=== PATIENT | male | born 1955 | race Caucasian/White ===

== ENCOUNTER 2019-03-17 20:34 | Emergency (ER) | payer OTHER ==
[2019-03-17 20:46] VITALS: BP 140/84; PULSE 89
--- NOTE | 2019-03-17 20:58 | EDM.PDOC ---
ED HPI GENERAL MEDICAL PROBLEM - General Chief Complaint: Respiratory Problem Stated Complaint: SOB RIB PAIN Time Seen by Provider: 03/17/19 20:46 Source of Information: Reports: Patient History Limitations: Reports: No Limitations - History of Present Illness INITIAL COMMENTS - FREE TEXT/NARRATIVE: 63-year-old male presents to the ED with severe pain in his left mid back since having left rotator cuff repair February 20. Patient states he knew that he had a rib head out of place as soon as he went home because of similar pain in his left back. Pain is constant hot burning and radiates around to the front of his left chest. It is causing enough pain that he is not able to sleep well and interfering with his ability to try and work. Splinting respirations. Denies cough or sputum production. No fever or chills. After 2 weeks workers compensation Board made him return to the workplace in spite of having had multiple sites of rotator cuff repair in his left shoulder. He went back to work last Sunday, March 12 and the but was sick with gastroenteritis and diarrhea on the . He tried to go back to work today but the pain was too intense. Patient has been to the chiropractor and believes that one of his rib heads was put back into place but the second one could not primarily due to inability to lay on his left side to allow the chiropractor to replace this rib head. He comes to the ED tonight because of severity of pain hoping to get some muscle relaxant so that he might be able to sleep. He apparently has oxycodone tablets at home after surgery. He was prescribed 40 and has taken only 3 of them. He states last week one day his left hand swelled quite badly for 6 hours or so and then seem to go down overnight. Patient has appreciable inspiratory splinting on the left side. Onset: Sudden Onset Date: 02/20/19 (Has had left upper and mid back pain started since February 20 when he had his rotator cuff repaired on the left side.) Duration: Day(s):, Getting Worse Location: Reports: Back (Pain primarily in his mid left thorax. Makes breathing very painful. Pain is described as hot and burning. It radiates along the lateral ribs to the anterior chest and left precordium at times.) Quality: Reports: Ache, Burning, Sharp, Stabbing Severity: Moderate Improves with: Reports: None (8 out of 10) Worsens with: Reports: Other Context: Reports: Other (States he awoke with pain in his left upper back after having left rotator cuff surgery February 20. He feels that sometime during the operation his rib heads subluxed.). Denies: Activity (ertain positions make it worse. Finding it very uncomfortable to try lay down at night to sleep.), Exercise, Lifting, Sick Contact, Trauma Associated Symptoms: Reports: Chest Pain, Malaise, Shortness of Breath. 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.) Left Chest Pain Score (Numeric/FACES): 8 - Related Data Allergies Allergy/AdvReac Type Severity Reaction Status Date / Time venom-honey bee Allergy Anaphylactic Verified 03/17/19 20:46 [bee venom (honey bee)] Shock Home Meds: Home Meds Hydrocodone/Acetaminophen [Hydrocodon-Acetaminophen 5-325] 1 tab PO Q4H PRN [History] Cyclobenzaprine [Flexeril] 10 mg PO BEDTIME PRN #10 tab 03/17/19 [Rx] Diclofenac Sodium [Voltaren] 75 mg PO BIDMEALS #20 tab.cr 03/17/19 [Rx] Past Medical History Other Respiratory History: slight empysema - Past Surgical History Musculoskeletal Surgical History: Reports: Other (See Below) (Patient underwent left rotator cuff repair on multiple sites February 20. He states he had his biceps tendon repair to supraspinatus tendon repaired and another tendon repaired in his left shoulder.) Social & Family History - Living Situation & Occupation Living situation: Reports: Occupation: Employed ED ROS GENERAL - Review of Systems Review Of Systems: See Below Constitutional: Reports: Malaise, Weakness, Fatigue, Decreased Appetite ( Pulmonic asleep). Denies: Fever, Chills HEENT: Reports: No Symptoms Respiratory: Reports: Shortness of Breath. Denies: Wheezing, Pleuritic Chest Pain, Cough, Sputum Cardiovascular: Reports: Chest Pain (Radiates from his left mid back into the left precordium.), Dyspnea on Exertion (Has appreciated some swelling in his legs lately.), Edema, Other (Dyspnea at rest). Denies: Blood Pressure Problem, Claudication, Lightheadedness, Orthopnea Endocrine: Reports: Fatigue GI/Abdominal: Reports: Decreased Appetite : Reports: No Symptoms Musculoskeletal: Reports: Shoulder Pain (Left shoulder pain recovering from rotator cuff repair done February 20 of this year), Back Pain (Left mid) Skin: Reports: No Symptoms Neurological: Reports: No Symptoms Psychiatric: Reports: Anxiety, Mood Lability Hematologic/Lymphatic: Reports: No Symptoms (Feeling grouchy and mood Sharma due to his chronic pain and poor sleep) Immunologic: Reports: No Symptoms ED EXAM, GENERAL - Physical Exam Exam: See Below Exam Limited By: No Limitations General Appearance: Alert, WD/WN, Moderate Distress, Other (He appears to be in obvious discomfort.) Neck: Normal Inspection, Supple, Non-Tender, Full Range of Motion. No: Carotid Bruit, Lymphadenopathy (L), Lymphadenopathy (R) Respiratory/Chest: Lungs Clear, No Accessory Muscle Use, Respiratory Distress ( Tachypneic at rest 20/m.), Decreased Breath Sounds (There is dullness to percussion left lower lung field. Query pleural effusion), Splinting (Decreased breath sounds to the left lung base due to splinting. Left side). No: Normal Breath Sounds, Rales, Rhonchi, Wheezing Cardiovascular: Normal Peripheral Pulses, Regular Rate, Rhythm, No Edema, No Gallop, No Murmur, No Rub Peripheral Pulses: 3+: Posterior Tibial (L), Posterior Tibial (R), Dorsalis Pedis (L), Dorsalis Pedis (R) GI/Abdominal: Normal Bowel Sounds, Soft, Non-Tender, No Organomegaly, No Mass, Pelvis Stable Back Exam: Muscle Spasm (There is muscle spasm on the left side over her thoracic rib head 8 and 9 level. Tenderness in this area as well. No rashes.) Extremities: Pedal Edema, Other (Patient has multiple laparoscopic wounds to the left shoulder which are healing well from recent rotator cuff surgery. He has mild dependent edema 2+ both lower extremities to mid tib-fib.) Neurological: Alert, Oriented, CN II-XII Intact, Normal Cognition, Normal Gait, No Motor/Sensory Deficits Psychiatric: Other (He is in obvious discomfort.) Skin Exam: Warm, Dry, Intact, Normal Color, No Rash EKG INTERPRETATION EKG Date: 03/17/19 Time: 21:08 Rhythm: NSR Rate (Beats/Min): 89 [place]: Normal P-Wave: Enlarged (Consider left atrial hypertrophy.) QRS: Other (There is early R-wave transition in V2 V3. Consider right ventricular hypertrophy versus septal hypertrophy pattern. There is also an RSR prime wave in V1 which is a normal variant.) ST-T: Other (There is a lot of baseline wandering but he does have an early repolarization pattern.) QT: Prolonged EKG Interpretation Comments: Abnormal ECG Course - Vital Signs Last Recorded V/S: Last Vital Signs Temp 36.7 C 03/17/19 20:40 Pulse 89 03/17/19 20:40 Resp 20 03/17/19 20:40 BP 140/84 03/17/19 20:40 Pulse Ox 97 03/17/19 20:40 - Orders/Labs/Meds Orders: Active Orders 24 hr Category Date Time Status EKG Documentation Completion [RC] STAT Care 03/17/19 21:00 Active Chest 1V Frontal [CR] Stat Exams 03/17/19 21:00 Taken Chest PE [Ang Chest] [CT] Stat Exams 03/17/19 21:35 Taken Dextrose 5%-0.9% NaCl [Dextrose 5%-Normal Saline] 1,000 Med 03/17/19 21:00 Active ml IV ASDIRECTED Medication Orders Dextrose/Sodium Chloride (Dextrose 5%-Normal Saline) 1,000 mls @ 500 mls/hr IV ASDIRECTED KEVIN Last Admin: 03/17/19 21:04 Dose: 500 mls/hr Labs: Laboratory Tests 03/17/19 03/17/19 03/17/19 Range/Units 21:06 21:06 21:06 WBC 8.09 (4.23-9.07) K/mm3 RBC 4.69 (4.63-6.08) M/mm3 Hgb 14.5 (13.7-17.5) gm/dl Hct 43.7 (40.1-51.0) % MCV 93.2 H (79.0-92.2) fl MCH 30.9 (25.7-32.2) pg MCHC 33.2 (32.2-35.5) g/dl RDW Std Deviation 45.2 H (35.1-43.9) fL Plt Count 225 (163-337) K/mm3 MPV 8.6 L (9.4-12.3) fl Neut % (Auto) 56.0 (34.0-67.9) % Lymph % (Auto) 24.2 (21.8-53.1) % [place] % (Auto) 16.3 H (5.3-12.2) % Eos % (Auto) 2.3 (0.8-7.0) Baso % (Auto) 0.5 (0.1-1.2) % Neut # (Auto) 4.52 (1.78-5.38) K/mm3 Lymph # (Auto) 1.96 (1.32-3.57) K/mm3 [place] # (Auto) 1.32 H (0.30-0.82) K/mm3 Eos # (Auto) 0.19 (0.04-0.54) K/mm3 Baso # (Auto) 0.04 (0.01-0.08) K/mm3 Manual Slide Review Abnormal smear D-Dimer, Quantitative 0.69 H (0.19-0.50) mg/L Sodium 142 (136-145) mEq/L Potassium 4.0 (3.5-5.1) mEq/L Chloride 107 (98-107) mEq/L Carbon Dioxide 28 (21-32) mEq/L Anion Gap 11.0 (5-15) BUN 17 (7-18) mg/dL Creatinine 1.1 (0.7-1.3) mg/dL Est Cr Clr Drug Dosing 62.83 mL/min Estimated GFR (MDRD) > 60 (>60) mL/min BUN/Creatinine Ratio 15.5 (14-18) Glucose 133 H (80-115) mg/dL Calcium 9.0 (8.5-10.1) mg/dL Magnesium 2.2 (1.8-2.4) mg/dl Total Bilirubin 0.4 (0.2-1.0) mg/dL AST 17 (15-37) U/L ALT 50 (16-63) U/L Alkaline Phosphatase 94 (46-116) U/L Lactate Dehydrogenase (85-227) U/L Troponin I < 0.017 (0.00-0.056) ng/mL C-Reactive Protein 6.9 H* (<1.0) mg/dL NT-Pro-B Natriuret Pep (0-125) pg/mL Total Protein 7.6 (6.4-8.2) g/dl Albumin 3.6 (3.4-5.0) g/dl Globulin 4.0 gm/dL Albumin/Globulin Ratio 0.9 L (1-2) 03/17/19 03/17/19 Range/Units 21:06 21:06 WBC (4.23-9.07) K/mm3 RBC (4.63-6.08) M/mm3 Hgb (13.7-17.5) gm/dl Hct (40.1-51.0) % MCV (79.0-92.2) fl MCH (25.7-32.2) pg MCHC (32.2-35.5) g/dl RDW Std Deviation (35.1-43.9) fL Plt Count (163-337) K/mm3 MPV (9.4-12.3) fl Neut % (Auto) (34.0-67.9) % Lymph % (Auto) (21.8-53.1) % [place] % (Auto) (5.3-12.2) % Eos % (Auto) (0.8-7.0) Baso % (Auto) (0.1-1.2) % Neut # (Auto) (1.78-5.38) K/mm3 Lymph # (Auto) (1.32-3.57) K/mm3 [place] # (Auto) (0.30-0.82) K/mm3 Eos # (Auto) (0.04-0.54) K/mm3 Baso # (Auto) (0.01-0.08) K/mm3 Manual Slide Review D-Dimer, Quantitative (0.19-0.50) mg/L Sodium (136-145) mEq/L Potassium (3.5-5.1) mEq/L Chloride (98-107) mEq/L Carbon Dioxide (21-32) mEq/L Anion Gap (5-15) BUN (7-18) mg/dL Creatinine (0.7-1.3) mg/dL Est Cr Clr Drug Dosing mL/min Estimated GFR (MDRD) (>60) mL/min BUN/Creatinine Ratio (14-18) Glucose (80-115) mg/dL Calcium (8.5-10.1) mg/dL Magnesium (1.8-2.4) mg/dl Total Bilirubin (0.2-1.0) mg/dL AST (15-37) U/L ALT (16-63) U/L Alkaline Phosphatase (46-116) U/L Lactate Dehydrogenase 166 (85-227) U/L Troponin I (0.00-0.056) ng/mL C-Reactive Protein (<1.0) mg/dL NT-Pro-B Natriuret Pep 22 (0-125) pg/mL Total Protein (6.4-8.2) g/dl Albumin (3.4-5.0) g/dl Globulin gm/dL Albumin/Globulin Ratio (1-2) Meds: Medications Generic Name Dose Route Start Last Admin Trade Name Freq PRN Reason Stop Dose Admin Dextrose/Sodium Chloride 1,000 mls @ 500 mls/hr 03/17/19 21:00 03/17/19 21:04 Dextrose 5%-Normal Saline IV 500 mls/hr ASDIRECTED KEVIN Administration Discontinued Medications Generic Name Dose Route Start Last Admin Trade Name Freq PRN Reason Stop Dose Admin Hydromorphone HCl 1 mg 03/17/19 20:59 03/17/19 21:05 Dilaudid IVPUSH 03/17/19 21:00 1 mg ONETIME ONE Administration Metoclopramide HCl 10 mg 03/17/19 20:59 03/17/19 21:05 Reglan IVPUSH 03/17/19 21:00 10 mg ONETIME ONE Administration - Radiology Interpretation Free Text/Narrative:: 63-year-old male presents to the ED for evaluation of severe left thoracic back pain. Patient states he underwent laparoscopic rotator cuff repair on February 20 and when he went home that day he appreciated pain in his left back. He's had this pain before when his rib heads have subluxed and this is what he thought was causing his pain. He's been living at with it for the last 3 weeks or better. Has gone to the chiropractor and perhaps one of the ribs was reduced but unable to reduce the upper mid back from bed due to inability to get into a suitable position for the chiropractor to work due to him having to lay on his left shoulder. He comes to the ED in quite significant pain although his Percocet tablets at home is only taken 3 since the time of surgery. He was hoping to get some muscle relaxants her some relief of the pain so he might be able to sleep. Patient was forced to go back to work week ago I 2 weeks after surgery by Worker's Compensation board. He works at [employer] and is doing light duties but was unable to do them today. He eliminated to 2 days last week as well. Patient is splinting respirations on the left side with decreased air entry at left lung base. He does have mild pitting edema both lower extremities up to mid tib-fib bilaterally which is atypical for him. Patient's pain is out of proportion to clinical findings. He does indeed have a area of muscle spasm left mid back particularly over rib head 8 and 9 levels. I suspect there is a rib head subluxed at the T8 level. Plan IV will be D5 normal saline at 250 mils per hour. Given Dilaudid 1 mg IV with Reglan 10 mg IV. Plan will be to have a chest x-ray ECG and some routine labs including a d-dimer to make sure not missing anything. - Re-Assessments/Exams Free Text/Narrative Re-Assessment/Exam: 03/17/19 21:34 chest x-ray reveals an elevated left hemidiaphragm with a meniscus sign in the left lung field suggestive of a pleural effusion. There is a large amount of air distending the stomach which is pushing up on the left hemidiaphragm in this area as well. The heart size is normal. There does not appear to be any vascular congestion. Plan will be to CT his chest per pulmonary angiogram since his pain is out of proportion to clinical findings suggesting a possible pulmonary infarct. 03/17/19 21:37 Hematology reveals a normal white count at 8.09. Auto differential shows 56% neutrophils. Elevated monocytes at 16%. Hemoglobin is 14.5 with hematocrit of 43.7. MCV slightly elevated at 93.2. White count normal at 225,000. 03/17/19 21:54 Further labs are now available. Patient's d-dimer did come back mildly elevated at 0.69. Upper limits of normal are lab is 0.50. Sodium is 142 with potassium of 4.0. Chloride is 107 with a bicarbonate 28. Anion gap is 11.0. BUNs was 17 with creatinine of 1.1. GFR remains greater than 60. Glucose is 133 with a calcium of 9.0. Magnesium is 2.2. Liver function is normal. Troponin I is less than 0.017. C-reactive protein is elevated at 6.9. BNP is 22. Protein 7.6 with an albumin fraction of 3.6. 03/17/19 22:26 CT chest is been completed per pulmonary angiogram protocol. Cardiac silhouette is within normal limits. There is no evidence of pulmonary embolism on this study. There is questionable pneumothorax on the left side adjacent to the mediastinum and a small amount of air in the apex of the left lung. There appears to be some emphysematous blebs in the right lung field as well. However I am suspicious of a small pneumothorax adjacent to the mediastinum. The [facility] rad radiologist reports no evidence of pneumothorax. No pleural effusion and agreed that there was no evidence of pulmonary emboli. Patient is having much less pain with the IV analgesia. He still feels pain primarily in the front of his anterior chest. There is no pleural effusion. If there is a pneumothorax present it is very small and does not deserve thoracostomy drainage at this point time. She will return if he doesn't improve over the next 48 hours. No be given to excuse him from the work place for the rest of this week. Home on Flexeril 10 mg to be taken primarily at bedtime to help sleep. Therefore he already has Percocet 5/325 mg tablets at home and he continues intermittent for pain relief. Advised MiraLAX powder 17 g daily well on the pain pills to prevent constipation. He will also be placed on Voltaren 75 mg twice a day for 7 days to help reduce inflammation and pain. Departure - Departure Time of Disposition: 22:39 Disposition: Home, Self-Care 01 Condition: Fair Clinical Impression: Pleuritic chest pain - Discharge Information *PRESCRIPTION DRUG MONITORING PROGRAM REVIEWED*: Not Applicable *COPY OF PRESCRIPTION DRUG MONITORING REPORT IN PATIENT GILBERT: Not Applicable Prescriptions: Cyclobenzaprine [Flexeril] 10 mg PO BEDTIME PRN #10 tab PRN Reason: muscle spasm relief. Diclofenac Sodium [Voltaren] 75 mg PO BIDMEALS #20 tab.cr Referrals: Eneida Yoo NP [Primary Care Provider] - Forms: ED Department Discharge, ED Return to Work/School Form Additional Instructions: Evaluation in the emergency room tonight in regards to worsening pain left upper back and anterior left chest particularly over the last few days. As you identified your. Have a rib head subluxation or displacement in your left upper back at the T8 or T9 level on examination. Use appeared to be in a great deal of pain more than one would expect just from a rib head subluxation and there is a pleuritic component to your chest pain i.e. every breath catches and hurts. Patient were carried out. States he suggested that the left hemidiaphragm is elevated and that there perhaps was an area of fluid collection in the base call the pleural effusion. Markers for potential blood clot in the lung came back very minimally elevated. They can sometimes be elevated from recent surgery as well. He therefore had a CT scan of your chest with contrast to make sure there was no blood clots in the lungs and none were found. Some emphysematous changes in both lungs appreciated on CT exam. You're treated with intravenous fluids and pain medication Dilaudid 1 mg with Reglan 10 mg to make sure there was no nausea from the pain medication. Treatment at home is suggested to be Percocet tabs 5/325 mg one or 2 every 4-6 hours needed for pain relief. Use Voltaren 75 mg twice daily breakfast and supper with food. This medication is used to reduce pain and inflammation. Flexeril 10 mg may be taken every 12 hours but preferably just at bedtime as a muscle relaxant to help sleep. note given to excuse her from the work place for the rest of this week. - My Orders Last 24 Hours: My Active Orders 03/17/19 21:00 EKG Documentation Completion [RC] STAT Chest 1V Frontal [CR] Stat Dextrose 5%-0.9% NaCl [Dextrose 5%-Normal Saline] 1,000 ml IV ASDIRECTED 03/17/19 21:35 Chest PE [Ang Chest] [CT] Stat - Assessment/Plan Last 24 Hours: My Active Orders 03/17/19 21:00 EKG Documentation Completion [RC] STAT Chest 1V Frontal [CR] Stat Dextrose 5%-0.9% NaCl [Dextrose 5%-Normal Saline] 1,000 ml IV ASDIRECTED 03/17/19 21:35 Chest PE [Ang Chest] [CT] Stat
[2019-03-17] MEDS ORDERED: HYDROmorphone 1 MG/ML Syringe IVPUSH ONE (20:59)
[2019-03-17] MEDS ORDERED: Metoclopramide 10 MG/2 ML SDV IVPUSH ONE (20:59)
[2019-03-17] MEDS ORDERED: Dextrose 5%-0.9% NaCl 1,000 ML IV SCH (21:00)
--- NOTE | 2019-03-18 07:01 | CR ---
Chest: Frontal view of the chest was obtained. Comparison: Prior chest x-ray of 04/19/15. Slight atelectasis above the left hemidiaphragm. Lungs otherwise are clear. Heart size and mediastinum are normal. Previous left shoulder surgery is noted. Impression: 1. Findings which are believed to be incidental. 2. Nothing acute is appreciated on frontal chest x-ray. Diagnostic code #2
--- NOTE | 2019-03-18 07:04 | CT ---
CT chest Technique: Multiple axial sections were obtained from above the lung apices inferiorly through the lung bases. Intravenous contrast was utilized. Study has been performed as a pulmonary angiogram protocol. Comparison: Prior chest CT study of 04/19/15 and chest x-ray performed earlier on the same day as current chest CT. Findings: Pulmonary arteries are not optimally opacified. No discrete filling defects are seen within main or segmental branches to indicate pulmonary embolism. Aorta shows mild atherosclerotic change without aneurysm. No mediastinal adenopathy is seen. Mild coronary artery calcification is noted. No pericardial thickening is seen. Visualized portions of the upper abdominal structures are within normal limits. Slight emphysematous change with small subpleural blebs. No acute parenchymal change is otherwise seen. Impression: 1. No findings of pulmonary embolism within the main or segmental branches. 2. Slight emphysematous changes small subpleural blebs. 3. Nothing acute is appreciated. Diagnostic code #2 I agree with preliminary report from [facility], finalized on 03/17/19, 11:29 PM Central Time
== END 2019-03-17 22:50 | disposition home or self-care (01) ==
LOC: JD.ED 20:34
DX: R07.81 Pleurodynia (principal); Z91.030 Bee allergy status
CPT/HCPCS: 36415; 71045; 71275; 80053; 83615; 83735; 83880; 84484; 85025; 85379; 86140; 93005; 96361; 96374; 96375; 99284; J1170; J2765; J7042

== ENCOUNTER 2021-04-05 02:18 | Emergency (ER) | payer BC, OTHER ==
--- NOTE | 2021-04-05 03:02 | EDM.PDOC ---
ED HPI GENERAL MEDICAL PROBLEM - General Chief Complaint: Respiratory Problem Stated Complaint: SOB Time Seen by Provider: 04/05/21 02:44 Source of Information: Reports: Patient, Family () History Limitations: Reports: No Limitations - History of Present Illness INITIAL COMMENTS - FREE TEXT/NARRATIVE: Mr. Samuel is a very pleasant 65-year-old gentleman who now presents the ED stating that he has had dyspnea, chest congestion, slight wheezing with exertion, and a nonproductive cough since or 03/31/2021 or 04/01/2021. He states that his symptoms may be a bit worse if supine, therefore he feels more comfortable if upright. He also notes that he feels better if he has the heat on his back, such as with the seat heater in his car. He reports difficulty sleeping due to dyspnea, not because of noise from his chest. He states that he has been using his albuterol MDI over the past few days, which has not really helped. Here in the ED, the patient's initial BP is found to be mildly elevated at 141/82, otherwise, he is hemodynamically stable, afebrile, saturating 96% on room air. He appears to be comfortable, in no acute distress. Prior to or Sunday, the patient denies having a recent fever, chills, sore throat, ear pain, nasal or sinus congestion, cough, dyspnea, chest pain, palpitations, nausea, vomiting, constipation, diarrhea, abdominal pain, urinary symptoms, recent weight gain or weight loss, recent bloody bowel movements or black bowel movements, recent joint aches, headaches, or rashes. I reviewed the PMHx/PSHx/SocHx, which was reviewed with the patient by the RN. The patient's PCP is Eneida Yoo NP. He has received 2 COVID vaccinations, and an influenza vaccination this season. - Related Data Allergies Allergy/AdvReac Type Severity Reaction Status Date / Time venom-honey bee Allergy Anaphylactic Verified 04/05/21 02:31 [bee venom (honey bee)] Shock Home Meds: Home Meds . [No Known Home Meds] 04/05/21 [History] Past Medical History - Past Surgical History Musculoskeletal Surgical History: Reports: Other (See Below) (Patient underwent left rotator cuff repair on multiple sites October 3. He states he had his biceps tendon repair to supraspinatus tendon repaired and another tendon repaired in his left shoulder.) Social & Family History - Family History Family Medical History: No Pertinent Family History - Tobacco Use Tobacco Use Status *Q: Former Tobacco User Years of Tobacco use: 42 Packs/Tins Daily: 1 Month/Year Tobacco Last Used: Quit 2014 Tobacco Use Comment: Started smoking 1972 - Caffeine Use Caffeine Use: Reports: Coffee, Soda - Alcohol Use Alcohol Use History: Yes Alcohol Use Frequency: Rarely - Recreational Drug Use Recreational Drug Use: Yes Drug Use in Last 12 Months: No Recreational Drug Type: Reports: Marijuana/Hashish (last smoked around 2015) - Living Situation & Occupation Living situation: Reports: , with Spouse Occupation: Retired ED ROS GENERAL - Review of Systems Review Of Systems: Comprehensive ROS is negative, except as noted in HPI. ED EXAM, GENERAL - Physical Exam Exam: See Below Exam Limited By: No Limitations General Appearance: Alert, WD/WN, No Apparent Distress Eye Exam: Bilateral Eye: EOMI, Normal Inspection Ears: Normal External Exam, Hearing Grossly Normal Nose: Normal Inspection Throat/Mouth: Normal Inspection, Normal Lips, Normal Voice, No Airway Compromise Head: Atraumatic, Normocephalic Neck: Normal Inspection, Full Range of Motion Respiratory/Chest: No Respiratory Distress, No Accessory Muscle Use, Rhonchi (scattered). No: Decreased Breath Sounds, Crackles, Wheezing, Stridor, Prolonged Expiration Cardiovascular: Normal Peripheral Pulses, Regular Rate, Rhythm, No Gallop, No JVD, No Murmur, No Rub Peripheral Pulses: 3+: Radial (L), Radial (R) GI/Abdominal: Normal Bowel Sounds, Soft, Non-Tender, No Organomegaly, No Distention, No Abnormal Bruit, No Mass Back Exam: Normal Inspection, Full Range of Motion, NT Extremities: Normal Inspection, Normal Range of Motion, Normal Capillary Refill Neurological: Alert, Oriented, Normal Cognition, No Motor/Sensory Deficits Psychiatric: Normal Affect Skin Exam: Warm, Dry, Intact, Normal Color, No Rash #1 Interpretation EKG Date: 04/05/21 Time: 03:24 Rhythm: Other (Sinus bradycardia) Rate (Beats/Min): 57 [place]: Normal P-Wave: Present QRS: Other (Early transition) ST-T: Normal (Diffuse J-point elevation, but no ischemic changes) QT: Normal Comparison: No Change (03/17/2019) Course - Vital Signs Last Recorded V/S: Last Vital Signs Temp 37.1 C 04/05/21 02:32 Pulse 64 04/05/21 06:28 Resp 17 04/05/21 06:28 BP 125/79 04/05/21 06:28 Pulse Ox 99 04/05/21 06:28 - Orders/Labs/Meds Labs: Laboratory Tests 04/05/21 04/05/21 04/05/21 Range/Units 03:18 03:18 03:18 WBC 6.76 (4.23-9.07) K/mm3 RBC 4.66 (4.63-6.08) M/mm3 Hgb 14.8 (13.7-17.5) gm/dl Hct 43.9 (40.1-51.0) % MCV 94.2 H (79.0-92.2) fl MCH 31.8 (25.7-32.2) pg MCHC 33.7 (32.2-35.5) g/dl RDW Std Deviation 44.6 H (35.1-43.9) fL Plt Count 193 (163-337) K/mm3 MPV 8.8 L (9.4-12.3) fl Neutrophils % (Manual) 56 (40-60) % Band Neutrophils % 1 (0-10) % Lymphocytes % (Manual) 30 (20-40) % Atypical Lymphs % 0 % Monocytes % (Manual) 12 H (2-10) % Eosinophils % (Manual) 0 L (0.8-7.0) % Basophils % (Manual) 1 (0.2-1.2) Platelet Estimate Adequate RBC Morph Comment Normal D-Dimer, Quantitative 0.42 (0.19-0.50) mg/L Sodium 140 (136-145) mEq/L Potassium 4.2 (3.5-5.1) mEq/L Chloride 103 (98-107) mEq/L Carbon Dioxide 27 (21-32) mEq/L Anion Gap 14.2 (5-15) BUN 17 (7-18) mg/dL Creatinine 1.1 (0.7-1.3) mg/dL Est Cr Clr Drug Dosing 63.43 mL/min Estimated GFR (MDRD) > 60 (>60) mL/min BUN/Creatinine Ratio 15.5 (14-18) Glucose 110 H (70-99) mg/dL Lactic Acid (0.4-2.0) mmol/L Calcium 8.7 (8.5-10.1) mg/dL Total Bilirubin 0.4 (0.2-1.0) mg/dL AST 15 (15-37) U/L ALT 32 (16-63) U/L Alkaline Phosphatase 72 (46-116) U/L Troponin I < 0.017 (0.00-0.056) ng/mL NT-Pro-B Natriuret Pep (0-125) pg/mL Total Protein 6.8 (6.4-8.2) g/dl Albumin 3.6 (3.4-5.0) g/dl Globulin 3.2 gm/dL Albumin/Globulin Ratio 1.1 (1-2) Influenza Type A RNA Influenza Type B RNA SARS-CoV-2 RNA (PETER) (NEGATIVE) 04/05/21 04/05/21 04/05/21 Range/Units 03:18 03:18 04:15 WBC (4.23-9.07) K/mm3 RBC (4.63-6.08) M/mm3 Hgb (13.7-17.5) gm/dl Hct (40.1-51.0) % MCV (79.0-92.2) fl MCH (25.7-32.2) pg MCHC (32.2-35.5) g/dl RDW Std Deviation (35.1-43.9) fL Plt Count (163-337) K/mm3 MPV (9.4-12.3) fl Neutrophils % (Manual) (40-60) % Band Neutrophils % (0-10) % Lymphocytes % (Manual) (20-40) % Atypical Lymphs % % Monocytes % (Manual) (2-10) % Eosinophils % (Manual) (0.8-7.0) % Basophils % (Manual) (0.2-1.2) Platelet Estimate RBC Morph Comment D-Dimer, Quantitative (0.19-0.50) mg/L Sodium (136-145) mEq/L Potassium (3.5-5.1) mEq/L Chloride (98-107) mEq/L Carbon Dioxide (21-32) mEq/L Anion Gap (5-15) BUN (7-18) mg/dL Creatinine (0.7-1.3) mg/dL Est Cr Clr Drug Dosing mL/min Estimated GFR (MDRD) (>60) mL/min BUN/Creatinine Ratio (14-18) Glucose (70-99) mg/dL Lactic Acid 1.7 (0.4-2.0) mmol/L Calcium (8.5-10.1) mg/dL Total Bilirubin (0.2-1.0) mg/dL AST (15-37) U/L ALT (16-63) U/L Alkaline Phosphatase (46-116) U/L Troponin I (0.00-0.056) ng/mL NT-Pro-B Natriuret Pep 32 (0-125) pg/mL Total Protein (6.4-8.2) g/dl Albumin (3.4-5.0) g/dl Globulin gm/dL Albumin/Globulin Ratio (1-2) Influenza Type A RNA Cancelled Influenza Type B RNA Cancelled SARS-CoV-2 RNA (PETER) Negative (NEGATIVE) - Re-Assessments/Exams Free Text/Narrative Re-Assessment/Exam: 04/05/21 03:00 I have ordered a work-up that includes several blood tests, a swab for the SARS-CoV-2 virus and influenza A + B viruses, a chest x-ray, and an ECG. 04/05/21 04:05 Two-view chest radiograph appears to be grossly normal. The cardiac silhouette is within normal limits. No pulmonary vascular congestion. No pleural effusions. No focal infiltrate. No pneumothorax. The left hemidiaphragm appears to be slightly elevated. Formal read per the Radiologist pending. 04/05/21 04:50 The patient's CBC is unremarkable. His CMP is remarkable for slight hyperglycemia of 110, and is otherwise unremarkable. His lactic acid level is within normal limits at 1.7. His troponin is undetectably low. His pro-BNP is within normal limits at 32. His D-dimer is within normal limits at 0.42. Results of his swab for the SARS-CoV-2 virus and influenza A + B viruses is still pending. 04/05/21 05:58 The patient's swab for the SARS-CoV-2 virus and influenza A + B viruses is negative for all. 04/05/21 06:09 Test results discussed with the patient and his . As above, today's work-up is entirely unremarkable. He does not have pneumonia. Does not appear that he has bronchitis. It is highly unlikely that he has either COVID-19 or influenza. He does not have a PE. He is not in CHF. He has not suffered a recent IL. As best I can tell, he is suffering from a viral URI. His dyspnea is due to nasal congestion, not a lack of ability to get air. At present, his oxygen saturation is 100%. I advised him to not take any [id number] cough or cold remedies, and be patient - this illness will have to run its course. Departure - Departure Time of Disposition: 06:11 Disposition: Home, Self-Care 01 Condition: Good Clinical Impression: Viral URI with cough - Discharge Information *PRESCRIPTION DRUG MONITORING PROGRAM REVIEWED*: Not Applicable *COPY OF PRESCRIPTION DRUG MONITORING REPORT IN PATIENT GILBERT: Not Applicable Instructions: Upper Respiratory Infection, Adult, Doqe-[id number] Referrals: Eneida Yoo NP [Primary Care Provider] - Forms: ED Department Discharge Additional Instructions: You were seen in the emergency room for shortness of breath, congestion, a dry cough, and slight wheezing with exertion. Work-up in the ER included several blood tests, a swab for the SARS-CoV-2 virus and influenza A + B viruses, a chest x-ray, and an ECG. Your entire work-up was unremarkable. You do not have pneumonia or bronchitis. You do not have COVID-19 or influenza. You do not have a blood clot in your lungs. You are not in congestive heart failure. You have not suffered a heart attack. Based on your history, physical exam, and ER tests, you are most likely suffering from a viral URI, also known as a common cold. Unfortunately, there are no medicines to treat a viral URI - it will have to run its course. As discussed, we recommend that you not take any [id number]-[id number] cough or cold remedies, as they have been shown to be of no benefit, but do have side effects, such as an upset stomach. You may take [id number] acetaminophen or ibuprofen as needed for discomfort. If any other problems, please do not hesitate to return to the ER. Sepsis Event Note (ED) - Evaluation Sepsis Screening Result: No Definite Risk
--- NOTE | 2021-04-05 05:45 | CR ---
Chest: PA and lateral views of the chest were obtained. Comparison: Prior chest x-ray of 04/17/19 and 04/19/15. Heart size and mediastinum are within normal limits. Lungs are clear with no acute parenchymal change. Prior shoulder surgery is seen on the left side. Slight scoliosis is noted within the spine. Impression: 1. Chronic findings as noted above. 2. Nothing acute is seen on 2-view chest x-ray. Diagnostic code #2
[2021-04-05 06:46] VITALS: BP 125/79; PULSE 64
== END 2021-04-05 06:28 | disposition home or self-care (01) ==
LOC: JD.ED 02:18
DX: J06.9 Acute upper respiratory infection, unspecified (principal); R00.1 Bradycardia, unspecified; Z87.891 Personal history of nicotine dependence; Z91.030 Bee allergy status; Z20.822 Contact with and (suspected) exposure to COVID-19
CPT/HCPCS: 36415; 71046; 71046-26; 80053; 83605; 83880; 84484; 85007; 85027; 85379; 87804; 93005; 93010; 99284; 99285-25; U0002

== ENCOUNTER 2023-06-18 08:52 | Emergency (ER) | payer MEDICARE, OTHER ==
[2023-06-18 09:15] VITALS: PULSE 84
[2023-06-18] MEDS ORDERED: Ketorolac 15 MG/ML SDV IVPUSH ONE (09:25)
[2023-06-18] MEDS ORDERED: Sodium Chloride 0.9% 500 ML IV ONE (09:25)
[2023-06-18 09:52] LABS: INR 0.96; PROTHROMBIN TIME 10.3 SECONDS (9.7-12.0)
[2023-06-18 09:53] LABS: A/G RATIO 0.8 (1-2); ALBUMIN 3.3 g/dl (3.4-5.0); ANION GAP 12.7 (5-15); BILIRUBIN TOTAL 0.5 mg/dL (0.2-1.0); BUN/CREATININE RATIO 13.3 (14-18); CALCIUM 8.7 mg/dL (8.5-10.1); CREATININE 1.2 mg/dL (0.7-1.3); EST CRCL DRUG DOSING (CG) 54.64 mL/min; MAGNESIUM 1.8 mg/dL (1.8-2.4); POTASSIUM,K 3.7 mEq/L (3.5-5.1); PROTEIN TOTAL,TP 7.5 g/dl (6.4-8.2)
[2023-06-18 10:14] LABS: CORONAVIRUS COVID-19 NAA POSITIVE (NEGATIVE); INFLUENZA A NAA NEGATIVE (NEGATIVE); RESPIRATORY SYNCYTIAL VIR NAA NEGATIVE (NEGATIVE)
[2023-06-18] MEDS ORDERED: Morphine 2 MG/ML SYRINGE IVPUSH ONE (10:58)
[2023-06-18 11:50] LABS: HEMATOCRIT 43.3 % (42.0-52.0); HEMOGLOBIN 15.5 gm/dl (14.0-18.0); MEAN CORPUSCULAR HEMOGLOBIN 33.4 pg (28.0-32.0); MEAN CORPUSCULAR HGB CONC 35.8 g/dl (32.0-36.0); MEAN CORPUSCULAR VOLUME 93.3 fl (83.0-99.0); PLATELET COUNT,PLT 208 K/mm3 (150-400); RED BLOOD CELL COUNT 4.64 M/mm3 (4.52-5.90); WHITE BLOOD CELL COUNT,WBC 5.39 K/mm3 (3.9-11.3)
[2023-06-18] MEDS ORDERED: Pseudoephedrine 30 MG Tab PO ONE (11:56)
[2023-06-18 12:53] LABS: C-REACTIVE PROTEIN <0.2 mg/dL (<1.0); TROPONIN I HIGH SENSITIVITY 8 pg/mL (<=76)
[2023-06-18 14:06] VITALS: BP 129/64
== END 2023-06-18 13:44 | disposition home or self-care (01) ==
LOC: JD.ED 08:52
DX: U07.1 COVID-19 (principal); Z91.030 Bee allergy status
CPT/HCPCS: 0241U; 36415; 71045; 80053; 83690; 83735; 83880; 84484; 85027; 85610; 86140; 93005; 96361; 96374; 96375; 99285; A9270; J1885; J2270; J7030; 93010; 99284